=== PATIENT | male | born 1980 | race African-American/Black ===

== ENCOUNTER 2019-11-23 21:34 | Emergency (ER) | payer OTHER, SELFPAY ==
--- NOTE | 2019-11-23 21:56 | RAD ---
EXAM: CHEST ONE VIEW HISTORY: Cough and shortness of breath COMPARISON: None FINDINGS: The cardiac silhouette and pulmonary vasculature is within normal limits. There are mild increased in terstitial and patchy parenchymal densities seen in the right midlung zone and at the right lung base with suggestion of minimal patchy density in the retrocardiac region left lung base. No pleural effusion is identified. Mild right convex curvature thoracic spine is present. IMPRESSION: Interstitial and patchy densities right lung and at the medial left lung base. Findings are worrisome for infectious process and possibly atypical infectious process. Viral pneumonitis is also a differential consideration.
== END 2019-11-23 22:07 | disposition home or self-care (01) ==
LOC: ERS 21:34
DX: J18.9 Pneumonia, unspecified organism (principal); Z20.828 Contact with and (suspected) exposure to other viral communicable diseases; Z79.899 Other long term (current) drug therapy
CPT/HCPCS: 71045